=== PATIENT | female | born 1990 | race Caucasian/White ===

== ENCOUNTER 2022-06-18 21:45 | Inpatient (IN) ==
[~2022-06-18 21:45] MED LIST: INFLUENZA VIRUS VACCINE 0.5 ML SYRINGE IM ONE
[2022-06-18] MEDS ORDERED: miSOPROStoL 200 MCG TABLET RECTAL PRN (22:37)
[2022-06-18] MEDS ORDERED: CARBOPROST TROMETHAMINE 250 MCG/ML AMP IM PRN (22:37)
[2022-06-18] MEDS ORDERED: ONDANSETRON 4 MG/2 ML VIAL IV PRN (22:37)
[2022-06-18] MEDS ORDERED: LACTATED RINGERS 500 ML IV PRN (22:37)
[2022-06-18] MEDS ORDERED: OXYTOCIN/LR 20 UNIT/1,000 ML BAG IV ONE (22:37)
[2022-06-18] MEDS ORDERED: LACTATED RINGERS 250 ML IV ONE (22:37)
[2022-06-18] MEDS ORDERED: TRANEXAMIC ACID 1,000 MG in SODIUM CHLORIDE 0.9% 100 ML IV PRN (22:37)
[2022-06-18] MEDS ORDERED: METHYLERGONOVINE 0.2 MG/1 ML AMP IM PRN (22:37)
[2022-06-18] MEDS ORDERED: ACETAMINOPHEN 325 MG TABLET PO PRN (22:37)
[2022-06-18 22:59] LABS: Basophils % 0.3 % (0.0-0.8); Eosinophils # 0.1 10*3/uL (0.0-0.87); Eosinophils % 0.7 % (0.00-10.9); Hematocrit 32.9 VOL% (35.7-47.0); Hemoglobin 10.8 GM/DL (12.0-16.0); Immature Granulocytes % 0.5 %; Immature Granulocytes Absolute 0.05 #; Lymphocytes # 2.5 10*3/uL (1.4-4.0); Lymphocytes % 24.3 % (21.3-54.2); Mean Corpuscular HGB Conc 32.8 GM/DL (32-36); Mean Corpuscular Volume 88.9 FL (87-102); Mean Platelet Volume 10.2 FL (9.6-12.0); Monocytes # 0.8 10*3/uL (0.11-0.8); Monocytes % 8.1 % (1.7-12.7); Neutrophils % 66.1 % (38.7-73.9); Platelet Count 218 T/CUMM (130-400); White Blood Count 10.2 T/CUMM (4-12)
[2022-06-18] MEDS ORDERED: LACTATED RINGERS 1,000 ML IV SCH (23:00)
[2022-06-18] MEDS ORDERED: OXYTOCIN/LR 20 UNIT/1,000 ML BAG IV SCH (23:00)
[2022-06-19] MEDS ORDERED: FAMOTIDINE 20 MG/2 ML VIAL IV ONE (06:59)
[2022-06-19] MEDS ORDERED: PROMETHAZINE 25 MG/1 ML VIAL IM ONE (06:59)
[2022-06-19] MEDS ORDERED: hydrOXYzine HCL 25 MG/1 ML VIAL IM PRN (06:59)
[2022-06-19] MEDS ORDERED: diphenhydrAMINE 50 MG/1 ML VIAL IV PRN ×2 (06:59)
[2022-06-19] MEDS ORDERED: ONDANSETRON 4 MG/2 ML VIAL IV ONE (06:59)
[2022-06-19] MEDS ORDERED: NALOXONE 0.4 MG/ML VIAL IV PRN (06:59)
[2022-06-19] MEDS ORDERED: ePHEDrine 50 MG/ML VIAL IV PRN (06:59)
[2022-06-19] MEDS ORDERED: LACTATED RINGERS 250 ML IV PRN (06:59)
[2022-06-19] MEDS ORDERED: CITRIC ACID/SODIUM CITRATE 30 ML UDCUP PO ONE (06:59)
[2022-06-19] MEDS ORDERED: fentaNYL 2 MCG/ROPIV 0.2% EPID 100 ML EPIDURAL SCH (07:00)
[2022-06-19] MEDS ORDERED: LACTATED RINGERS 1,000 ML IV SCH (07:00)
[2022-06-19 09:38] LABS: Mucus,Urine Moderate /LPF (Occasional); RBC,Urine 129 /HPF (0-4); Squamous Epithelial Cell,Urine Occasional /HPF (0-10)
[2022-06-19 09:42] LABS: Bilirubin,Urine Negative (Negative); Blood, Urine Large mg/dL (Negative); Glucose,Urine (UA) Negative (Negative); Ketones,Urine Negative (Negative); Nitrite,Urine Negative (Negative); Protein,Urine Negative (Negative); Urine Appearance Clear (Clear); Urine Color Yellow (Yellow); Urine Specific Gravity > 1.030 (1.001-1.035); Urine Urobilinogen 0.2 eU/dL (<2.0)
[2022-06-19] MEDS ORDERED: MEPERIDINE 25 MG/1 ML VIAL IV ONE (09:46)
[2022-06-19 11:43] LABS: Cord Venous Blood HCO3 23.4 MMOL/L; Cord Venous Blood PCO2 41.5 MMHG; Cord Venous Blood PO2 35.9
[2022-06-19] MEDS ORDERED: oxyCODONE/ACETAMINOPHEN 5-325 MG TABLET PO PRN (15:35)
[2022-06-19] MEDS ORDERED: OXYTOCIN/LR 20 UNIT/1,000 ML BAG IV ONE (15:35)
[2022-06-19] MEDS ORDERED: LANOLIN 50% CREAM 0.3 OZ TUBE TOP PRN (15:35)
[2022-06-19] MEDS ORDERED: ACETAMINOPHEN 325 MG TABLET PO PRN (15:35)
[2022-06-19] MEDS ORDERED: BENZOCAINE 20%/MENTHOL 0.5% SPRAY 56 GM CAN TOP PRN (15:35)
[2022-06-19] MEDS ORDERED: ONDANSETRON 4 MG/2 ML VIAL IV PRN (15:35)
[2022-06-19] MEDS ORDERED: RHO(D) IMMUNE GLOBULIN 300 MCG SYRINGE IM ONE (15:35)
[2022-06-19] MEDS ORDERED: WITCH HAZEL PADS 100/JAR TOP PRN (15:35)
[2022-06-19] MEDS ORDERED: IBUPROFEN 800 MG TABLET PO PRN (15:35)
[2022-06-19] MEDS ORDERED: MEASLES/MUMPS/RUBELLA VACCINE 0.5 ML VIAL SUBCUT ONE (15:35)
[2022-06-19] MEDS ORDERED: BISACODYL 10 MG SUPP RECTAL PRN (15:35)
[2022-06-19] MEDS ORDERED: HYDROCORTISONE 2.5% RECTAL CREAM 30 GM TUBE TOP PRN (15:35)
[2022-06-19] MEDS ORDERED: DIPH/TET/ACEL PERT BOOSTER VACCINE 0.5 ML VIAL IM ONE (15:35)
[2022-06-19] MEDS: DOCUSATE SODIUM 100 MG CAPSULE PO SCH (20:38)
[2022-06-20 05:51] LABS: Basophils % 0.3 % (0.0-0.8); Eosinophils # 0.1 10*3/uL (0.0-0.87); Eosinophils % 0.9 % (0.00-10.9); Hematocrit 34.5 VOL% (35.7-47.0); Hemoglobin 10.9 GM/DL (12.0-16.0); Immature Granulocytes % 0.5 %; Immature Granulocytes Absolute 0.06 #; Lymphocytes # 2.1 10*3/uL (1.4-4.0); Lymphocytes % 18.1 % (21.3-54.2); Mean Corpuscular HGB Conc 31.6 GM/DL (32-36); Mean Corpuscular Volume 90.3 FL (87-102); Mean Platelet Volume 11.2 FL (9.6-12.0); Monocytes # 0.8 10*3/uL (0.11-0.8); Monocytes % 6.4 % (1.7-12.7); Neutrophils % 73.8 % (38.7-73.9); Platelet Count 199 T/CUMM (130-400); Red Blood Count 3.82 MC/CUMM (3.8-5.5); Red Cell Distribution Width 13.9 % (9.3-17.3); White Blood Count 11.7 T/CUMM (4-12)
[2022-06-20] MEDS: DOCUSATE SODIUM 100 MG CAPSULE PO SCH ×2 (09:42→21:20)
[2022-06-20] MEDS: oxyCODONE/ACETAMINOPHEN 5-325 MG TABLET PO PRN ×2 (12:23→21:21)
[2022-06-20] MEDS: SERTRALINE 50 MG TABLET PO SCH (13:46)
[2022-06-21 09:38] VITALS: BP 132/89
[2022-06-21] MEDS: DOCUSATE SODIUM 100 MG CAPSULE PO SCH (09:51)
[2022-06-21] MEDS: SERTRALINE 50 MG TABLET PO SCH (09:51)
== END 2022-06-21 11:15 | disposition home or self-care (01) | DRG 807 ==
LOC: N.LD 21:45 → N.OB 06-19 14:42
PROVIDERS: ADMIT Specialist; ATTEND Specialist